=== PATIENT | female | born 1935 | race Caucasian/White ===

== ENCOUNTER 2018-06-05 21:12 | Emergency (ER) | payer MEDICARE, MEDICAID ==
[~2018-06-05] VITALS: Ht 165.1 cm; Wt 79.4 kg
[~2018-06-05 21:12] MED LIST: AMLO5TAB2 PO; AMOX-427 PO; DONE10TA11 PO; ESCI10TA PO; MEMA28CA PO; OLME40TA12 PO; SIMV20TA2 PO
[2018-06-05] MEDS ORDERED: ACETAMINOPHEN 650 MG/20.3 ML LIQUID UDC PO ONE (22:30)
--- NOTE | 2018-06-05 22:52 | NUR ---
Patient discharged to home in stable conditon. Written and verbal after care instructions given. Patient verbalizes understanding of instructions. Patient able to ambulate unassisted with a steady gait. Patient left with all personal belongings.
[2018-06-05 23:42] VITALS: BP 128/88
== END 2018-06-05 22:52 | disposition home or self-care (01) ==
LOC: ER 21:14
DX: S62.92XA Unspecified fracture of left hand, initial encounter for closed fracture (principal); I10 Essential (primary) hypertension; E78.5 Hyperlipidemia, unspecified; Z79.899 Other long term (current) drug therapy; W01.0XXA Fall on same level from slipping, tripping and stumbling without subsequent striking against object, initial encounter; Y93.89 Activity, other specified; Y92.89 Other specified places as the place of occurrence of the external cause; Y99.8 Other external cause status
CPT/HCPCS: 73130; A4663

== ENCOUNTER 2018-09-17 07:52 | Inpatient (IN) | payer MEDICARE, OTHER ==
[~2018-09-17] VITALS: Ht 160 cm; Wt 81.6 kg
[~2018-09-17 07:52] MED LIST changes: -AMLO5TAB2 PO; +AMLO5TAB7 PO
[2018-09-17] MEDS ORDERED: ONDANSETRON 4 MG/2 ML VIAL IV ONE ×2 (08:00→11:28)
[2018-09-17] MEDS ORDERED: MORPHINE SULFATE 2 MG/1 ML DISP.SYRIN IV ONE (08:00)
[2018-09-17] MEDS ORDERED: ONDANSETRON 4 MG/2 ML VIAL ONE (08:03)
[2018-09-17] MEDS ORDERED: SIMV40TA5 PO (08:03)
[2018-09-17] MEDS ORDERED: LOSA100T15 PO (08:03)
[2018-09-17] MEDS ORDERED: MORPHINE SULFATE 4 MG/1 ML DISP.SYRIN ONE ×3 (08:03→09:38)
[2018-09-17] MEDS ORDERED: MEMA1CAP3 PO (08:03)
[2018-09-17 08:23] LABS: BASOPHILS % (AUTO) 0.3 % (0.0-2.0); EOSINOPHILS # (AUTO) 0.2 K/uL (0.0-0.7); EOSINOPHILS % (AUTO) 1.4 % (0.0-7.0); HEMATOCRIT 41.4 % (31.2-41.9); HEMOGLOBIN 13.8 g/dL (10.9-14.3); LYMPHOCYTES # (AUTO) 1.6 K/uL (20.0-40.0); LYMPHOCYTES % (AUTO) 12.3 % (20.5-51.5); MEAN CORPUSCULAR HEMOGLOBIN 29.9 uug (24.7-32.8); MEAN CORPUSCULAR HGB CONC 33 g/dL (32.3-35.6); MEAN CORPUSCULAR VOLUME 89.7 fL (75.5-95.3); MONOCYTES # (AUTO) 0.4 K/uL (2.0-10.0); NEUTROPHILS # (AUTO) 10.6 K/uL (1.8-8.9); PLATELET COUNT (AUTO) 206 K/uL (179-408); RED BLOOD CELL COUNT(AUTO) 4.62 MIL/uL (3.63-4.92); WHITE BLOOD COUNT (AUTO) 12.8 K/uL (3.8-11.8)
[2018-09-17 08:36] LABS: CARBON DIOXIDE 27 mmol/L (21-32); CHLORIDE 106 mmol/L (98-107); GLUCOSE 180 mg/dL (74-106); POTASSIUM 4.5 mmol/L (3.5-5.1); UREA NITROGEN, BLOOD 12 mg/dL (7-18)
[2018-09-17] MEDS ORDERED: MORPHINE SULFATE 4 MG/1 ML DISP.SYRIN IV ONE ×2 (08:45→09:45)
[2018-09-17] MEDS ORDERED: IV NORMAL SALINE 500 ML IV ONE (09:45)
[2018-09-17 10:11] LABS: *BILIRUBIN,URIN NEGATIVE (NEGATIVE); *BLOOD, URINE NEGATIVE (NEGATIVE); *CLARITY,URINE CLEAR (CLEAR); *COLOR,URINE YELLOW (YELLOW); *KETONES,URINE NEGATIVE (NEGATIVE); *PROTEIN,URINE NEGATIVE (NEGATIVE); *UROBILINOGEN,URINE 0.2 E.U./dl (NORMAL); LEUKOCYTE ESTERASE ,URINE NEGATIVE (NEGATIVE); NITRITE, URINE NEGATIVE (NEGATIVE); UGLUCOSE NEGATIVE (NEGATIVE)
[2018-09-17 10:16] LABS: BACTERIA,URINE NONE SEEN /HPF (NONE SEEN); RBC,URINE NONE SEEN /HPF (0-3); SQUAMOUS EPITHELIAL CELL,UR NONE SEEN /HPF (NONE SEEN); WBC,URINE NONE SEEN /HPF (0-3)
[2018-09-17 10:30] VITALS: BP 134/60
[2018-09-17] MEDS ORDERED: POLYMYXIN B SULFATE 500,000 UNITS, BACITRACIN 50,000 UNITS, NORMAL SALINE 20 ML MC ONE ×3 (10:45)
[2018-09-17] MEDS ORDERED: Z GUARD REMEDY PASTE 57 GM TUBE TOP PRN (11:15)
[2018-09-17] MEDS ORDERED: MORPHINE SULFATE 2 MG/1 ML DISP.SYRIN IV PRN (11:15)
[2018-09-17] MEDS ORDERED: MAGNESIUM HYDROXIDE 30 ML LIQUID UDC PO PRN (11:15)
[2018-09-17] MEDS ORDERED: DEXAMETHASONE SOD PHOSPHATE 4 MG INJ IV ONE (11:28)
[2018-09-17] MEDS ORDERED: EPHEDRINE SULFATE 50 MG/ML AMPUL MC ONE (11:28)
[2018-09-17] MEDS ORDERED: CEFAZOLIN 1 G VIAL MC ONE (11:28)
[2018-09-17] MEDS ORDERED: IV NORMAL SALINE 1000 ML BAG IV ONE (11:28)
[2018-09-17] MEDS ORDERED: SEVOFLURANE 250 ML BOTTLE IH ONE (11:28)
[2018-09-17] MEDS ORDERED: PROPOFOL 200 MG/20 ML BOTTLE IV ONE (11:28)
[2018-09-17] MEDS ORDERED: LIDOCAINE-MPF 2% 5 ML VIAL MC ONE (11:28)
[2018-09-17] MEDS ORDERED: MORPHINE SULFATE 4 MG/1 ML DISP.SYRIN IV PRN (11:30)
[2018-09-17] MEDS ORDERED: BUPIVACAINE/EPI PF 0.5% 10 ML VIAL ONE (13:29)
[2018-09-17] MEDS ORDERED: HYDROMORPHONE 2 MG/1 ML DISP.SYRIN ONE (16:43)
[2018-09-17] MEDS ORDERED: FENTANYL CITRATE 100 MCG/2 ML AMPUL ONE (17:59)
[2018-09-17] MEDS ORDERED: KETOROLAC TROMETHAMINE 30 MG INJ IM PRN (18:00)
[2018-09-17 18:53] VITALS: BP 102/55
[2018-09-17] MEDS: IV NS 1000 ML 1,000 ML IV PRN (19:01)
[2018-09-17 19:16] VITALS: BP 109/56
[2018-09-17] MEDS: CEFAZOLIN 1 G in PREMIXED 1 EACH IV SCH (23:01)
[2018-09-17 23:20] VITALS: BP 111/61
[2018-09-18] VITALS (14 sets, daily range): BP systolic 66–115; BP diastolic 36–57
[2018-09-18] MEDS: IV NS 1000 ML 1,000 ML IV PRN ×2 (03:08→16:02)
[2018-09-18 06:25] LABS: HEMATOCRIT 31.2 % (31.2-41.9); HEMOGLOBIN 10.4 g/dL (10.9-14.3); LYMPHOCYTES # (AUTO) 0.9 K/uL (20.0-40.0); LYMPHOCYTES % (AUTO) 7.8 % (20.5-51.5); MEAN CORPUSCULAR HEMOGLOBIN 30.4 uug (24.7-32.8); MEAN CORPUSCULAR HGB CONC 33 g/dL (32.3-35.6); MEAN CORPUSCULAR VOLUME 91.3 fL (75.5-95.3); MONOCYTES # (AUTO) 0.7 K/uL (2.0-10.0); MONOCYTES % (AUTO) 5.6 % (0.0-11.0); NEUTROPHILS # (AUTO) 10.1 K/uL (1.8-8.9); NEUTROPHILS % (AUTO) 86.6 % (38.5-71.5); PLATELET COUNT (AUTO) 223 K/uL (179-408); RED BLOOD CELL COUNT(AUTO) 3.41 MIL/uL (3.63-4.92); WHITE BLOOD COUNT (AUTO) 11.7 K/uL (3.8-11.8)
[2018-09-18 06:32] LABS: CARBON DIOXIDE 23 mmol/L (21-32); CHLORIDE 106 mmol/L (98-107); CHOLESTEROL 125 mg/dL (<200); CREATININE 1.3 mg/dL (0.6-1.3); GLUCOSE 169 mg/dL (74-106); HDL CHOLESTEROL 40 mg/dL (40-60); MAGNESIUM 1.8 mg/dL (1.8-2.4); PHOSPHOROUS 3.8 mg/dL (2.5-4.9); POTASSIUM 3.9 mmol/L (3.5-5.1); TRIGLYCERIDES 108 MG/DL (30-150); UREA NITROGEN, BLOOD 23 mg/dL (7-18)
[2018-09-18] MEDS: CEFAZOLIN 1 G in PREMIXED 1 EACH IV SCH (06:36)
[2018-09-18] MEDS: ONDANSETRON 4 MG/2 ML VIAL IV PRN (08:05)
[2018-09-18] MEDS: ASPIRIN 325 MG TABLET PO SCH ×2 (08:22→17:59)
[2018-09-18] MEDS ORDERED: PANTOPRAZOLE SODIUM 40 MG VIAL IV SCH (09:00)
[2018-09-18] MEDS: CALCIUM CARBONATE 500 MG TABLET PO SCH (11:59)
[2018-09-18] MEDS: KETOROLAC TROMETHAMINE 30 MG INJ IVP PRN ×2 (12:09→21:38)
[2018-09-18] MEDS ORDERED: IV NORMAL SALINE 500 ML IV ONE (13:30)
[2018-09-18] MEDS: MEMANTINE HCL 5 MG TABLET PO SCH (21:29)
[2018-09-18] MEDS: DONEPEZIL 10 MG TABLET PO SCH (21:29)
[2018-09-18] MEDS: ACETAMINOPHEN 325 MG TABLET PO PRN (23:13)
[2018-09-19] VITALS (14 sets, daily range): BP systolic 111–158; BP diastolic 44–72
[2018-09-19] MEDS: IV NS 1000 ML 1,000 ML IV PRN (00:44)
[2018-09-19] MEDS: HYDROCODONE/APAP 5-325MG TABLET PO PRN (06:58)
[2018-09-19] MEDS: ASPIRIN 325 MG TABLET PO SCH ×2 (08:23→17:49)
[2018-09-19] MEDS: CALCIUM CARBONATE 500 MG TABLET PO SCH (08:23)
[2018-09-19] MEDS: MEMANTINE HCL 5 MG TABLET PO SCH ×2 (08:23→20:17)
[2018-09-19] MEDS ORDERED: Medication Not On Formulary EA (Memantine HCl/Donepezil HCl (Namzaric 28 mg-10 mg Capsul PO SCH (09:00)
[2018-09-19] MEDS ORDERED: SIMVASTATIN 40 MG TABLET PO SCH (09:00)
[2018-09-19] MEDS ORDERED: Medication Not On Formulary EA (Losartan Potassium 100 MG) PO SCH (09:00)
[2018-09-19 09:17] LABS: BASOPHILS % (AUTO) 0.1 % (0.0-2.0); HEMATOCRIT 21.8 % (31.2-41.9); LYMPHOCYTES % (AUTO) 7.5 % (20.5-51.5); MEAN CORPUSCULAR HEMOGLOBIN 30.8 uug (24.7-32.8); MEAN CORPUSCULAR HGB CONC 34 g/dL (32.3-35.6); MEAN CORPUSCULAR VOLUME 89.7 fL (75.5-95.3); MONOCYTES # (AUTO) 0.5 K/uL (2.0-10.0); MONOCYTES % (AUTO) 3.6 % (0.0-11.0); NEUTROPHILS # (AUTO) 11.9 K/uL (1.8-8.9); NEUTROPHILS % (AUTO) 88.8 % (38.5-71.5); PLATELET COUNT (AUTO) 154 K/uL (179-408); WHITE BLOOD COUNT (AUTO) 13.4 K/uL (3.8-11.8)
[2018-09-19 09:18] LABS: RED BLOOD CELL COUNT(AUTO) 2.43 MIL/uL (3.63-4.92)
[2018-09-19 09:20] LABS: HEMOGLOBIN 7.5 g/dL (10.9-14.3)
[2018-09-19 09:31] LABS: CARBON DIOXIDE 24 mmol/L (21-32); CHLORIDE 108 mmol/L (98-107); GLUCOSE 155 mg/dL (74-106); MAGNESIUM 1.9 mg/dL (1.8-2.4); PHOSPHOROUS 2.1 mg/dL (2.5-4.9); POTASSIUM 4.2 mmol/L (3.5-5.1); UREA NITROGEN, BLOOD 18 mg/dL (7-18)
[2018-09-19] MEDS: LOSARTAN POTASSIUM 50 MG TABLET PO SCH ×2 (09:40→16:25)
[2018-09-19] MEDS ORDERED: NEUTRA PHOS PACKET PO ONE (13:00)
[2018-09-19] MEDS: NEUTRA PHOS PACKET PO SCH ×3 (13:49→20:17)
[2018-09-19] MEDS: ACETAMINOPHEN 325 MG TABLET PO PRN (17:50)
[2018-09-19] MEDS: DONEPEZIL 10 MG TABLET PO SCH (20:17)
[2018-09-19] MEDS: SIMVASTATIN 40 MG TABLET PO SCH (20:17)
[2018-09-20 04:00] VITALS: BP 130/65
[2018-09-20] MEDS: PANTOPRAZOLE SODIUM 40 MG TABLET.DR PO SCH (06:22)
[2018-09-20] MEDS: IV NS 1000 ML 1,000 ML IV PRN ×2 (06:30→18:19)
[2018-09-20] MEDS: MEMANTINE HCL 5 MG TABLET PO SCH ×2 (08:13→21:22)
[2018-09-20] MEDS: ASPIRIN 325 MG TABLET PO SCH ×2 (08:13→18:18)
[2018-09-20] MEDS: CALCIUM CARBONATE 500 MG TABLET PO SCH (08:13)
[2018-09-20] MEDS: LOSARTAN POTASSIUM 50 MG TABLET PO SCH (08:19)
[2018-09-20] MEDS: HYDROCODONE/APAP 5-325MG TABLET PO PRN (08:28)
[2018-09-20] MEDS: ONDANSETRON 4 MG/2 ML VIAL IV PRN (08:28)
[2018-09-20 08:33] VITALS: BP 105/60
[2018-09-20] MEDS: KETOROLAC TROMETHAMINE 30 MG INJ IVP PRN (10:55)
[2018-09-20 11:20] VITALS: BP 106/52
[2018-09-20 16:00] VITALS: BP 108/56
[2018-09-20 20:00] VITALS: BP 134/63
[2018-09-20 20:03] LABS: BASOPHILS % (AUTO) 0.3 % (0.0-2.0); CARBON DIOXIDE 25 mmol/L (21-32); CHLORIDE 108 mmol/L (98-107); EOSINOPHILS # (AUTO) 0.5 K/uL (0.0-0.7); EOSINOPHILS % (AUTO) 3.8 % (0.0-7.0); GLUCOSE 121 mg/dL (74-106); HEMATOCRIT 28.3 % (31.2-41.9); HEMOGLOBIN 9.8 g/dL (10.9-14.3); LYMPHOCYTES # (AUTO) 1.8 K/uL (20.0-40.0); LYMPHOCYTES % (AUTO) 14.2 % (20.5-51.5); MEAN CORPUSCULAR HEMOGLOBIN 30.2 uug (24.7-32.8); MEAN CORPUSCULAR HGB CONC 35 g/dL (32.3-35.6); MEAN CORPUSCULAR VOLUME 87.5 fL (75.5-95.3); MONOCYTES # (AUTO) 0.7 K/uL (2.0-10.0); MONOCYTES % (AUTO) 5.6 % (0.0-11.0); NEUTROPHILS # (AUTO) 9.4 K/uL (1.8-8.9); NEUTROPHILS % (AUTO) 76.1 % (38.5-71.5); PLATELET COUNT (AUTO) 171 K/uL (179-408); RED BLOOD CELL COUNT(AUTO) 3.23 MIL/uL (3.63-4.92); UREA NITROGEN, BLOOD 14 mg/dL (7-18); WHITE BLOOD COUNT (AUTO) 12.4 K/uL (3.8-11.8)
[2018-09-20] MEDS: SIMVASTATIN 40 MG TABLET PO SCH (21:22)
[2018-09-20] MEDS: DONEPEZIL 10 MG TABLET PO SCH (21:22)
[2018-09-21 04:00] VITALS: BP 146/73
[2018-09-21] MEDS: IV NS 1000 ML 1,000 ML IV PRN (04:51)
[2018-09-21] MEDS: PANTOPRAZOLE SODIUM 40 MG TABLET.DR PO SCH (06:37)
[2018-09-21] MEDS: ASPIRIN 325 MG TABLET PO SCH (08:52)
[2018-09-21] MEDS: MEMANTINE HCL 5 MG TABLET PO SCH (08:53)
[2018-09-21] MEDS: CALCIUM CARBONATE 500 MG TABLET PO SCH (08:53)
[2018-09-21] MEDS: LOSARTAN POTASSIUM 50 MG TABLET PO SCH (08:53)
[2018-09-21 08:55] VITALS: BP 156/73
[2018-09-21] MEDS ORDERED: ONDA4VIA23 IV (10:05)
[2018-09-21] MEDS ORDERED: ASPI-612 PO (10:05)
[2018-09-21] MEDS ORDERED: PANT40TA2 PO (10:05)
[2018-09-21] MEDS ORDERED: DONE10TA11 PO (10:05)
[2018-09-21] MEDS ORDERED: CALC500T55 PO (10:05)
[2018-09-21] MEDS: HYDROCODONE/APAP 5-325MG TABLET PO PRN (10:17)
[2018-09-21] MEDS ORDERED: BISACODYL 10 MG SUPP.RECT RC ONE (10:30)
[2018-09-21 11:30] VITALS: BP 137/69
[2018-09-21] MEDS ORDERED: MORP2SYR IV (14:06)
[2018-09-21] MEDS ORDERED: HYDR-3326 PO (14:06)
[2018-09-21] MEDS ORDERED: KETO30VI4 IVP (14:06)
[2018-09-21] MEDS ORDERED: MAGN400O6 PO (14:06)
== END 2018-09-21 12:40 | DRG 481 ==
LOC: ER 07:52 → TELE 10:20 → ER 10:23 → MED 09-18 15:44
PROVIDERS: ADMIT Hospitalist; ATTEND Hospitalist
PROC: 0QS636Z Reposition Right Upper Femur with Intramedullary Internal Fixation Device, Percutaneous Approach (ICD-10-PCS; principal; 2018-09-17 15:14)
PROC: 30233N1 Transfusion of Nonautologous Red Blood Cells into Peripheral Vein, Percutaneous Approach (ICD-10-PCS; 2018-09-19)
DX: S72.141A Displaced intertrochanteric fracture of right femur, initial encounter for closed fracture (principal); I50.32 Chronic diastolic (congestive) heart failure; W01.0XXA Fall on same level from slipping, tripping and stumbling without subsequent striking against object, initial encounter; Y92.019 Unspecified place in single-family (private) house as the place of occurrence of the external cause; Z68.31 Body mass index [BMI] 31.0-31.9, adult; F03.90 Unspecified dementia, unspecified severity, without behavioral disturbance, psychotic disturbance, mood disturbance, and anxiety; Z91.81 History of falling; I95.1 Orthostatic hypotension; E78.5 Hyperlipidemia, unspecified; Z79.899 Other long term (current) drug therapy; M16.51 Unilateral post-traumatic osteoarthritis, right hip; R73.9 Hyperglycemia, unspecified; I11.0 Hypertensive heart disease with heart failure; D64.9 Anemia, unspecified; E83.51 Hypocalcemia; I49.1 Atrial premature depolarization; I67.2 Cerebral atherosclerosis; D72.829 Elevated white blood cell count, unspecified; E83.39 Other disorders of phosphorus metabolism; E66.01 Morbid (severe) obesity due to excess calories
CPT/HCPCS: 36415; 70030-TC; 70450; 71045; 72170; 73502; 73503; 73551; 83735; 84100; 85025; 85730; 86850; 86900; 86901; 86920; 93005; 97110; 97116; 97530; A4649; A4663; C1713; C9113; G0378; J0690; J1100; J1170; J1885; J2270; J2405; J3010; J3490; J7030; J7040; J7050; P9016-BL; P9021

== ENCOUNTER 2019-03-07 15:20 | Inpatient (IN) | payer MEDICARE, OTHER ==
[~2019-03-07] VITALS: Ht 160 cm; Wt 81.6 kg
[~2019-03-07 15:20] MED LIST changes: -AMLO5TAB7 PO; -AMOX-427 PO; +ASPI-612 PO; +CALC500T55 PO; -ESCI10TA PO; +HYDR-3326 PO; +KETO30VI4 IVP; +LOSA100T31 PO; +MAGN400O6 PO; +MEMA1CAP3 PO; -MEMA28CA PO; -OLME40TA12 PO; +ONDA4VIA23 IV; +PANT40TA2 PO; -SIMV20TA2 PO; +SIMV40TA5 PO
[2019-03-07] MEDS ORDERED: IV NORMAL SALINE 1000 ML BAG IV ONE (15:45)
--- NOTE | 2019-03-07 15:57 | NUR ---
RETAIL BANKER AT BEDSIDE.
[2019-03-07] MEDS ORDERED: ASPI81TA31 PO (16:01)
[2019-03-07 16:03] LABS: *BILIRUBIN,URIN NEGATIVE (NEGATIVE); *CLARITY,URINE CLEAR (CLEAR); *COLOR,URINE YELLOW (YELLOW); *KETONES,URINE NEGATIVE (NEGATIVE); *UROBILINOGEN,URINE 0.2 E.U./dl (NORMAL); LEUKOCYTE ESTERASE ,URINE NEGATIVE (NEGATIVE); NITRITE, URINE NEGATIVE (NEGATIVE); UGLUCOSE NEGATIVE (NEGATIVE)
[2019-03-07 16:10] LABS: *BLOOD, URINE TRACE (NEGATIVE)
[2019-03-07 16:11] LABS: CARBON DIOXIDE 29 mmol/L (21-32); CHLORIDE 98 mmol/L (98-107); CREATININE 0.9 mg/dL (0.6-1.3); GLUCOSE 109 mg/dL (74-106); POTASSIUM 3.6 mmol/L (3.5-5.1); UREA NITROGEN, BLOOD 17 mg/dL (7-18)
[2019-03-07 16:12] LABS: BASOPHILS % (AUTO) 0.4 % (0.0-2.0); EOSINOPHILS # (AUTO) 0.3 K/uL (0.0-0.7); HEMATOCRIT 42.1 % (31.2-41.9); HEMOGLOBIN 13.8 g/dL (10.9-14.3); LYMPHOCYTES # (AUTO) 1.8 K/uL (20.0-40.0); LYMPHOCYTES % (AUTO) 19.9 % (20.5-51.5); MEAN CORPUSCULAR HEMOGLOBIN 28.5 uug (24.7-32.8); MEAN CORPUSCULAR HGB CONC 33 g/dL (32.3-35.6); MEAN CORPUSCULAR VOLUME 86.7 fL (75.5-95.3); MONOCYTES # (AUTO) 0.4 K/uL (2.0-10.0); MONOCYTES % (AUTO) 4.6 % (0.0-11.0); NEUTROPHILS # (AUTO) 6.6 K/uL (1.8-8.9); NEUTROPHILS % (AUTO) 72.1 % (38.5-71.5); PLATELET COUNT (AUTO) 238 K/uL (179-408); RED BLOOD CELL COUNT(AUTO) 4.85 MIL/uL (3.63-4.92); WHITE BLOOD COUNT (AUTO) 9.2 K/uL (3.8-11.8)
[2019-03-07 16:16] LABS: BACTERIA,URINE NONE SEEN /HPF (NONE SEEN); RBC,URINE 0-3 /HPF (0-3); SQUAMOUS EPITHELIAL CELL,UR FEW /HPF (NONE SEEN); WBC,URINE 0-3 /HPF (0-3)
--- NOTE | 2019-03-07 16:20 | NUR ---
PT TAKEN TO RADIOLOGY FOR CT SCAN.
[2019-03-07 16:24] LABS: ALANINE AMINOTRANSFERASE 17 U/L (14-59); ALKALINE PHOSPHATASE 86 U/L (50-136); ASPARTATE AMINOTRANSFERASE 13 U/L (15-37); BILIRUBIN,DIRECT 0.1 mg/dL (0.0-0.2); BILIRUBIN,TOTAL 0.4 mg/dL (0.2-1.0); TOTAL PROTEIN, SERUM 7.9 g/dL (6.4-8.2)
--- NOTE | 2019-03-07 16:53 | NUR ---
LAI URIBE AT BEDSIDE FOR PT UPDATE.
--- NOTE | 2019-03-07 17:01 | NUR ---
PAGED EPIC FOR PANEL CALL - AWAITING CALLBACK FROM DR. DOWNING. ATTEMPT 1.
--- NOTE | 2019-03-07 17:30 | NUR ---
LAI URIBE SPEAKING W/ DR. DOWNING RE PT'S CARE.
--- NOTE | 2019-03-07 17:41 | NUR ---
Pt. admitted to TELE 315, under care of Dr. DOWNING. Belongs List completed
--- NOTE | 2019-03-07 17:41 | NUR ---
ADMITTING REPORT GIVEN TO BEVERLEY PASCAL.
[2019-03-07 18:10] VITALS: BP 177/69
--- NOTE | 2019-03-07 18:15 | NUR ---
Patient received from ER, daughter translating to patient that she will need to get into a gown and have library monitor applied and change adult brief and inspect skin. Patient was calm until her top was taken off and started screaming that she was fine and that she doesn't want the monitor placed on her and that she wants to go home (in broken [place]). Daughter helped calm her down until she finally agreed. Vitals recorded and history provided by daughter at bedside. medication taken to pharmacy.
[2019-03-07] MEDS ORDERED: IV NS 1000 ML 1,000 ML IV PRN (19:03)
[2019-03-07] MEDS ORDERED: ACETAMINOPHEN 325 MG TABLET PO PRN (19:15)
[2019-03-07] MEDS ORDERED: MAGNESIUM HYDROXIDE 30 ML LIQUID UDC PO PRN (19:15)
[2019-03-07] MEDS ORDERED: HYDROCODONE/APAP 5-325MG TABLET PO PRN (19:15)
[2019-03-07] MEDS ORDERED: ONDANSETRON 4 MG/2 ML VIAL IV PRN (19:15)
[2019-03-07] MEDS ORDERED: ZOLPIDEM 5 MG TABLET PO PRN (19:15)
[2019-03-07] MEDS ORDERED: Z GUARD REMEDY PASTE 57 GM TUBE TOP PRN (19:15)
--- NOTE | 2019-03-07 20:20 | NUR ---
Received patient awake and alert in bed with family at bedside. Patient is calm and cooperative. IV is patent and intact. BP slightly elevated but will monitor throughout shift. Safety and fall prevention measures in place. Call light and personal belongings are within reach. Will continue to monitor.
--- NOTE | 2019-03-07 20:35 | NUR ---
Patient's IV was dislodged, removed IV. Patient did not want to put another IV, asked to do it later, wants to rest. Will try in a couple hours.
[2019-03-07 21:07] VITALS: BP 168/69
[2019-03-08 01:12] VITALS: BP 143/92
[2019-03-08 04:57] VITALS: BP 152/64
--- NOTE | 2019-03-08 05:31 | NUR ---
Patient is refusing IV NS fluids. Explained risks/benefits three times, patient still refused. IV catheter removed intact and IV infusion stopped.
--- NOTE | 2019-03-08 05:35 | NUR ---
Patient slept comfortably throughout night. Periods of brief confusion when wakes up, unsure of what tele-monitor is for but when provided explanation, patient acknowledges understanding. Tele is normal sinus rhythm. VS WNL and patient is stable. Patient is cooperative and amiable. Patient is expressing desire to go home today. All safety and fall precaution measures are in place. All nursing needs met promptly.
[2019-03-08 06:36] LABS: BASOPHILS % (AUTO) 0.3 % (0.0-2.0); EOSINOPHILS # (AUTO) 0.4 K/uL (0.0-0.7); EOSINOPHILS % (AUTO) 4.6 % (0.0-7.0); HEMATOCRIT 36.8 % (31.2-41.9); HEMOGLOBIN 12.4 g/dL (10.9-14.3); LYMPHOCYTES % (AUTO) 22.2 % (20.5-51.5); MEAN CORPUSCULAR HGB CONC 34 g/dL (32.3-35.6); MEAN CORPUSCULAR VOLUME 86.3 fL (75.5-95.3); MONOCYTES # (AUTO) 0.5 K/uL (2.0-10.0); MONOCYTES % (AUTO) 5.8 % (0.0-11.0); NEUTROPHILS # (AUTO) 6.1 K/uL (1.8-8.9); NEUTROPHILS % (AUTO) 67.1 % (38.5-71.5); PLATELET COUNT (AUTO) 201 K/uL (179-408); RED BLOOD CELL COUNT(AUTO) 4.26 MIL/uL (3.63-4.92)
[2019-03-08 06:50] LABS: ALANINE AMINOTRANSFERASE 10 U/L (14-59); ALKALINE PHOSPHATASE 74 U/L (50-136); ASPARTATE AMINOTRANSFERASE 12 U/L (15-37); BILIRUBIN,TOTAL 0.5 mg/dL (0.2-1.0); CARBON DIOXIDE 28 mmol/L (21-32); CHLORIDE 107 mmol/L (98-107); CHOLESTEROL 170 mg/dL (<200); CREATININE 0.9 mg/dL (0.6-1.3); GLUCOSE 89 mg/dL (74-106); HDL CHOLESTEROL 48 mg/dL (40-60); MAGNESIUM 1.9 mg/dL (1.8-2.4); PHOSPHOROUS 3.7 mg/dL (2.5-4.9); TOTAL PROTEIN, SERUM 6.7 g/dL (6.4-8.2); TRIGLYCERIDES 92 MG/DL (30-150); UREA NITROGEN, BLOOD 13 mg/dL (7-18)
--- NOTE | 2019-03-08 07:10 | NUR ---
Patient laying in bed comfortably, Tele is normal sinus rhythm. VS WNL and patient is stable. No sob noted , no c/o pain noted and no dizziness note at this time. Patient is cooperative and able to make needs known. patient refuse to be reinsert for IV and refusing IV fluids. All safety and fall precaution measures are in place. All nursing needs met promptly.
[2019-03-08 07:13] LABS: THYROID STIMULATING HORMONE 1.451 mIU/mL (0.358-3.740)
[2019-03-08 09:30] VITALS: BP_SYST 128; BP_SYST 131; BP_SYST 145; BP_DIAS 62; BP_DIAS 72
[2019-03-08 11:16] VITALS: BP 132/64
[2019-03-08 15:19] VITALS: BP 147/80
--- NOTE | 2019-03-08 17:15 | NUR ---
Patient sitting at the edge of the bed talking with family, . No sob noted , no c/o pain noted and no dizziness note at this time. Patient is cooperative and able to make needs known. Seen by structural iron erector and neurologist. All safety and fall precaution measures are in place. All nursing needs met promptly received discharge order from Dr. Topete to home. discharge instruction given to patient with to continue home medications and follow up with PCP within 1 week and patient verbalize understanding. ID band removed, belongings and medications returned to patient and signed, questions and concerns addressed. patient discharge with family.
== END 2019-03-08 17:15 | disposition home or self-care (01) | DRG 74 ==
LOC: ER 15:23 → TELE3 17:41
PROVIDERS: ADMIT Internal Medicine; ATTEND Internal Medicine
DX: G90.8 Other disorders of autonomic nervous system (principal); E87.1 Hypo-osmolality and hyponatremia; E78.5 Hyperlipidemia, unspecified; F03.90 Unspecified dementia, unspecified severity, without behavioral disturbance, psychotic disturbance, mood disturbance, and anxiety; I10 Essential (primary) hypertension; Z79.82 Long term (current) use of aspirin; Z79.899 Other long term (current) drug therapy
CPT/HCPCS: 36415; 70030-TC; 70450; 71045; 83605; 83735; 84100; 84443; 85025; 85730; 87040; 87086; 93005; 93307; A4663; G0378; J7030

== ENCOUNTER 2021-11-05 09:33 | Inpatient (IN) | payer MEDICARE, OTHER ==
[~2021-11-05] VITALS: Ht 165.1 cm; Wt 75.7 kg
[~2021-11-05 09:33] MED LIST changes: -ASPI-612 PO; +ASPI81TA31 PO; +CALC500T53 PO; -CALC500T55 PO; -KETO30VI4 IVP; -MAGN400O6 PO; -ONDA4VIA23 IV; +SIMV-49 PO; -SIMV40TA5 PO
[2021-11-05] MEDS ORDERED: IV NORMAL SALINE 1000 ML BAG IV ONE ×2 (09:45→12:00)
[2021-11-05 10:49] LABS: HEMATOCRIT 39.5 % (31.2-41.9); MEAN CORPUSCULAR HEMOGLOBIN 29.1 uug (24.7-32.8); MEAN CORPUSCULAR VOLUME 88.9 fL (75.5-95.3); PLATELET COUNT (AUTO) 223 K/uL (179-408)
[2021-11-05 10:59] LABS: CREATININE 1.1 mg/dL (0.6-1.3); POTASSIUM 4.7 mmol/L (3.5-5.1)
[2021-11-05 11:05] LABS: BILIRUBIN,DIRECT 0.1 mg/dL (0.0-0.2); BILIRUBIN,TOTAL 0.5 mg/dL (0.2-1.0); TOTAL PROTEIN, SERUM 7.1 g/dL (6.4-8.2)
--- NOTE | 2021-11-05 11:10 | NUR ---
Pt to be admitted to [facility], [facility] paged, room 304 assigned. Plan of care discussed with pt and daughter. Pt signed property management form. No s/s of distress noted, BP 132/61 at this time.
[2021-11-05] MEDS ORDERED: CEFTRIAXONE 1 G in IV DEXTROSE 5% 50 ML IV ONE (11:15)
[2021-11-05] MEDS ORDERED: CEFTRIAXONE 1 G VIAL ONE (11:25)
[2021-11-05 11:32] LABS: THYROID STIMULATING HORMONE 2.951 mIU/mL (0.358-3.740)
--- NOTE | 2021-11-05 11:36 | NUR ---
SBAR report given to [place] RN via telephone. Anil Rdz at bedside speaking with the pt and her daughter.
--- NOTE | 2021-11-05 11:50 | NUR ---
Pt ambulated to restroom, clean catch urine specimen obtained and sent to lab.
[2021-11-05 11:59] LABS: *BILIRUBIN,URIN NEGATIVE (NEGATIVE); *BLOOD, URINE NEGATIVE (NEGATIVE); *CLARITY,URINE CLEAR (CLEAR); *COLOR,URINE YELLOW (YELLOW); *KETONES,URINE NEGATIVE (NEGATIVE); *UROBILINOGEN,URINE 0.2 E.U./dl (NORMAL); LEUKOCYTE ESTERASE ,URINE TRACE (NEGATIVE); NITRITE, URINE NEGATIVE (NEGATIVE); UGLUCOSE NEGATIVE (NEGATIVE)
[2021-11-05] MEDS ORDERED: IV NS 1000 ML 1,000 ML IV PRN (12:00)
[2021-11-05] MEDS ORDERED: Z GUARD REMEDY PASTE 57 GM TUBE TOP PRN (12:00)
[2021-11-05] MEDS ORDERED: ONDANSETRON 4 MG/2 ML VIAL IV PRN (12:00)
[2021-11-05] MEDS ORDERED: MAGNESIUM HYDROXIDE 30 ML LIQUID UDC PO PRN (12:00)
[2021-11-05] MEDS ORDERED: ACETAMINOPHEN 325 MG TABLET PO PRN (12:00)
--- NOTE | 2021-11-05 12:00 | NUR ---
Pt trans to tele floor room 304, NAD noted.
[2021-11-05 12:17] LABS: RBC,URINE NONE SEEN /HPF (0-3); SQUAMOUS EPITHELIAL CELL,UR FEW /HPF (NONE SEEN); WBC,URINE 0-3 /HPF (0-3)
[2021-11-05 12:18] LABS: MUCUS,URINE FEW /LPF (0-FEW)
[2021-11-05 12:21] LABS: BACTERIA,URINE FEW /HPF (NONE SEEN)
[2021-11-05 12:36] VITALS: BP 112/65
[2021-11-05] MEDS: ENOXAPARIN SODIUM 40 MG/0.4 ML DISP.SYRIN SQ SCH (13:00)
--- NOTE | 2021-11-05 13:19 | NUR ---
Clarified NS BOLUS ordered from er and given by er nurse per pharmacist.
--- NOTE | 2021-11-05 14:00 | NUR ---
Notified Dr metz pt and family refusing to have the CTA chest with dissection.
--- NOTE | 2021-11-05 16:00 | NUR ---
Pt refused troponin blood to be drawn.
[2021-11-05 16:03] VITALS: BP 133/57
[2021-11-05] MEDS ORDERED: IV NORMAL SALINE 250 ML IV ONE (16:49)
[2021-11-05] MEDS ORDERED: IOHEXOL 350 100 ML INFUS..BTL ONE (16:49)
[2021-11-05] MEDS ORDERED: SWABABLE VALVE TRANSFER SET EA MC ONE (16:49)
--- NOTE | 2021-11-05 16:57 | NUR ---
Pt and family now ok to have the cta done. IV 18 gauge on left ac intact flushed without any resistance. Pt is in no acute distress. PT signed Radiology consent.
[2021-11-05] MEDS: MEMANTINE HCL 10 MG TABLET PO SCH (17:15)
--- NOTE | 2021-11-05 17:45 | NUR ---
PT done with CTA chest with dissection. Family at bedside stating that their MOM is "not feeling good." assessed pt no drift noted. Smile equal. strength equal. no double vision noted. no dizziness noted. pt very anxious. Attempted visual relaxation unsuccessful. VS 152/63 hr 83- temp 98.0 r/a 98% resp 18. Explained to pt and family member that pt refused blood draw for troponin. Explained purpose of blood draw but pt and family continue to refused any blood draws. Addendum: 11/05/21 at 1830 by HOMER JUICE LOWERY Pt family members are overbearing and affecting pt's care. Instructed family to step aside when nursing is taking care of the patient. Asked family to designate one person to be represent their family.
[2021-11-05 20:08] VITALS: BP 144/61
[2021-11-06 00:23] VITALS: BP 127/63
--- NOTE | 2021-11-06 01:47 | NUR ---
pt pulled out her IV; pt refused reinsertion; will try again later
[2021-11-06 04:27] VITALS: BP 121/58
[2021-11-06] MEDS: PANTOPRAZOLE SODIUM 40 MG TABLET.DR PO SCH (06:24)
--- NOTE | 2021-11-06 07:10 | NUR ---
pt refused all blood draws; refused IV reinsertion; SBP in the 120s; safety maintained; continue plan of care
[2021-11-06] MEDS: ASPIRIN EC 81 MG TABLET.DR PO SCH (07:51)
[2021-11-06] MEDS: DONEPEZIL 10 MG TABLET PO SCH (07:52)
[2021-11-06] MEDS: MEMANTINE HCL 10 MG TABLET PO SCH ×2 (07:52→17:21)
[2021-11-06] MEDS: ENOXAPARIN SODIUM 40 MG/0.4 ML DISP.SYRIN SQ SCH (07:52)
[2021-11-06] MEDS ORDERED: MEMANTINE PO SCH (09:00)
[2021-11-06] MEDS ORDERED: DONEPEZIL PO SCH (09:00)
[2021-11-06] MEDS ORDERED: Medication Not On Formulary EA (Memantine HCl/Donepezil HCl (Namzaric 28 mg-10 mg Capsul PO SCH (09:00)
[2021-11-06] MEDS ORDERED: LOSARTAN POTASSIUM 50 MG TABLET PO SCH (09:00)
[2021-11-06] MEDS ORDERED: Medication Not On Formulary EA (Losartan Potassium 100 MG) PO SCH (09:00)
[2021-11-06] MEDS ORDERED: [UNRECOGNIZED DRUG - OTHER] PO SCH (09:00)
[2021-11-06] MEDS: CEFTRIAXONE 1 G in IV DEXTROSE 5% 50 ML IV SCH (11:00)
[2021-11-06] MEDS ORDERED: LOSA50TA3 PO (11:40)
[2021-11-06 11:53] VITALS: BP 137/76
--- NOTE | 2021-11-06 11:56 | NUR ---
PT REFUSING IV REINSERTION UNABLE TO GIVE ROCHEPHIN
[2021-11-06 16:00] VITALS: BP 161/80
--- NOTE | 2021-11-06 17:00 | NUR ---
Family requesting SNF placement. Case management notified of family request.
--- NOTE | 2021-11-06 18:26 | NUR ---
Charge nurse spoke with pt family BENJAMIN VALDES and KYLAH updated family of pts condition in detail. Family does not want to take pt home. Case management aware of situation and spoke with family.
--- NOTE | 2021-11-06 19:30 | NUR ---
Alert and oriented to person. Found walking around in her room not using assistive devices. She is unsteady on her feet, noted holding on to furniture for stability. In pleasant mood, Farsi speaking, able to understand and follow simple commands. Denies pain, No SOB noted, on RA. Call light within reach. Safety measures initiated.
[2021-11-06 20:05] VITALS: BP 146/78
[2021-11-06] MEDS ORDERED: SIMVASTATIN 40 MG TABLET PO SCH (21:00)
[2021-11-07 04:03] VITALS: BP 142/70
[2021-11-07] MEDS: PANTOPRAZOLE SODIUM 40 MG TABLET.DR PO SCH (06:05)
--- NOTE | 2021-11-07 06:46 | NUR ---
Patient slept well this shift. No significant events. Noted to go to the bathroom without assistance 2 times. Reminded to use cane, noted with limping, unstable gait. Safety measures continued. Call light within reach.
--- NOTE | 2021-11-07 07:50 | NUR ---
received awake, oriented x1, no acute distress. trying to get out of bed without assistance. reoriented prn. ambulates using walker. bed at lowest locked and alarm is on. siderails x2 up. cont to monitor.
[2021-11-07] MEDS: DONEPEZIL 10 MG TABLET PO SCH (08:22)
[2021-11-07] MEDS: MEMANTINE HCL 10 MG TABLET PO SCH (08:22)
[2021-11-07] MEDS: ASPIRIN EC 81 MG TABLET.DR PO SCH (08:22)
--- NOTE | 2021-11-07 08:50 | NUR ---
received call from pt's son stated they will pick her up later this afternoon taking her home instead. telehealth case manager made aware also that son wants to talk to her.
[2021-11-07] MEDS ORDERED: LOSARTAN POTASSIUM 50 MG TABLET PO SCH (09:00)
[2021-11-07] MEDS: ENOXAPARIN SODIUM 40 MG/0.4 ML DISP.SYRIN SQ SCH (09:23)
--- NOTE | 2021-11-07 09:30 | NUR ---
received call from dtr ivanna confirmed that she's going home today around 4pm. pt aware and agreeable.
--- NOTE | 2021-11-07 09:30 | NUR ---
noted going to the bathroom refusing assistance saying "i'm ok" using her cane with unsteady gait. assisted in the bathroom and back to bed, prefers sitting at edge of bed. encouraged to use walker instead but shaking her head. bed kept low locked and alarm on. cont to monitor.
--- NOTE | 2021-11-07 11:07 | NUR ---
refused iv reinsertion. will try again later
[2021-11-07 12:00] VITALS: BP 136/66
--- NOTE | 2021-11-07 13:00 | NUR ---
pt refused iv insertion. iv rocephin not given. aware.
[2021-11-07] MEDS: CEFTRIAXONE 1 G in IV DEXTROSE 5% 50 ML IV SCH (13:01)
--- NOTE | 2021-11-07 15:10 | NUR ---
dtr ivanna is here stated pt's pharmacy is [facility]. informed textile clothing and footwear mechanic cedillo and changed on the system. he said he will resend prescription. dtr aware.
[2021-11-07] MEDS ORDERED: LOSA50TA39 PO (15:16)
--- NOTE | 2021-11-07 15:43 | NUR ---
picked up by daughter ivanna. discharge instructions relayed both to dtr ivanna and patient and verbalized understanding. no s/sx of sob or pain. discharged via wc in stable condition.
== END 2021-11-07 16:00 | disposition home or self-care (01) | DRG 74 ==
LOC: ER 09:35 → TELE3 11:52 → MEDSURG3 11-06 10:48
PROVIDERS: ADMIT Hospitalist; ATTEND Hospitalist
DX: G90.8 Other disorders of autonomic nervous system (principal); E44.1 Mild protein-calorie malnutrition; E87.2 Acidosis; I50.32 Chronic diastolic (congestive) heart failure; E86.0 Dehydration; E88.09 Other disorders of plasma-protein metabolism, not elsewhere classified; E78.5 Hyperlipidemia, unspecified; F03.90 Unspecified dementia, unspecified severity, without behavioral disturbance, psychotic disturbance, mood disturbance, and anxiety; I11.0 Hypertensive heart disease with heart failure; Z91.19 Patient's noncompliance with other medical treatment and regimen; Z96.643 Presence of artificial hip joint, bilateral; Z20.822 Contact with and (suspected) exposure to COVID-19; Z90.710 Acquired absence of both cervix and uterus; Z68.27 Body mass index [BMI] 27.0-27.9, adult; Z90.5 Acquired absence of kidney
CPT/HCPCS: 36415; 70030-TC; 70450; 71045; 83605; 84443; 85025; 85730; 87040; 87086; 93307; 93880; A4663; G0378; J0696; J1650; J7030; J7050; J7060; Q9967

== ENCOUNTER 2023-07-04 08:38 | Inpatient (IN) | payer MEDICARE, OTHER ==
[~2023-07-04] VITALS: Ht 154.9 cm; Wt 67.2 kg
[~2023-07-04 08:38] MED LIST changes: -ASPI81TA31 PO; -CALC500T53 PO; -DONE10TA11 PO; -HYDR-3326 PO; -LOSA100T31 PO; +LOSA50TA39 PO; -PANT40TA2 PO
[2023-07-04] MEDS ORDERED: KETOROLAC TROMETHAMINE 15 MG INJ IVP ONE (09:00)
[2023-07-04] MEDS ORDERED: IV NORMAL SALINE 1000 ML BAG IV ONE (09:00)
[2023-07-04] MEDS ORDERED: METOCLOPRAMIDE HCL 10 MG/2 ML VIAL IV ONE (09:00)
[2023-07-04] MEDS ORDERED: METO-295 PO (09:00)
[2023-07-04 09:24] LABS: BASOPHILS % (AUTO) 0.4 % (0.0-2.0); EOSINOPHILS # (AUTO) 0.2 K/uL (0.0-0.7); EOSINOPHILS % (AUTO) 2.2 % (0.0-7.0); HEMATOCRIT 38.3 % (31.2-41.9); HEMOGLOBIN 12.4 g/dL (10.9-14.3); LYMPHOCYTES # (AUTO) 1.6 K/uL (0.8-4.8); LYMPHOCYTES % (AUTO) 14.7 % (20.5-51.5); MEAN CORPUSCULAR HEMOGLOBIN 28.1 uug (24.7-32.8); MEAN CORPUSCULAR HGB CONC 32 g/dL (32.3-35.6); MEAN CORPUSCULAR VOLUME 86.7 fL (75.5-95.3); MONOCYTES # (AUTO) 0.8 K/uL (0.1-1.30); MONOCYTES % (AUTO) 7.1 % (0.0-11.0); NEUTROPHILS # (AUTO) 8.5 K/uL (1.8-8.9); NEUTROPHILS % (AUTO) 75.6 % (38.5-71.5); PLATELET COUNT (AUTO) 322 K/uL (179-408); RED BLOOD CELL COUNT(AUTO) 4.42 MIL/uL (3.63-4.92); RED CELL DISTRIBUTION WIDTH 13.7 % (12.3-17.7); WHITE BLOOD COUNT (AUTO) 11.2 K/uL (3.8-11.8)
[2023-07-04 09:26] LABS: DIFFERENTIAL COMMENT 1
[2023-07-04 09:35] LABS: CALCIUM 9.1 mg/dL (8.5-10.1); CARBON DIOXIDE 24 mmol/L (21-32); CHLORIDE 104 mmol/L (98-107); GLUCOSE 151 mg/dL (74-106); POTASSIUM 3.5 mmol/L (3.5-5.1); SODIUM SERUM 138 mmol/L (136-145); UREA NITROGEN, BLOOD 11 mg/dL (7-18)
[2023-07-04 09:41] LABS: AMMONIA < 10 umol/L (11-32)
[2023-07-04 09:44] LABS: ALANINE AMINOTRANSFERASE 7 U/L (14-59); ALBUMIN 2.9 g/dL (3.4-5.0); ALKALINE PHOSPHATASE 73 U/L (50-136); ASPARTATE AMINOTRANSFERASE 8 U/L (15-37); BILIRUBIN,DIRECT 0.2 mg/dL (0.0-0.2); BILIRUBIN,TOTAL 0.6 mg/dL (0.2-1.0); TOTAL PROTEIN, SERUM 7.2 g/dL (6.4-8.2)
[2023-07-04] MEDS ORDERED: KETOROLAC TROMETHAMINE 15 MG INJ ONE (09:44)
[2023-07-04] MEDS ORDERED: METOCLOPRAMIDE HCL 10 MG/2 ML VIAL ONE (09:44)
[2023-07-04 10:06] LABS: LIPASE 41 U/L (73-393)
[2023-07-04] MEDS ORDERED: ONDANSETRON 4 MG/2 ML VIAL ONE (10:26)
[2023-07-04] MEDS ORDERED: ONDANSETRON 4 MG/2 ML VIAL IV ONE (10:30)
[2023-07-04 11:40] LABS: *BLOOD, URINE NEGATIVE (NEGATIVE); *CLARITY,URINE CLEAR (CLEAR); *COLOR,URINE YELLOW (YELLOW); *KETONES,URINE NEGATIVE (NEGATIVE); *PROTEIN,URINE TRACE (NEGATIVE); LEUKOCYTE ESTERASE ,URINE NEGATIVE (NEGATIVE); NITRITE, URINE NEGATIVE (NEGATIVE); UGLUCOSE NEGATIVE (NEGATIVE)
[2023-07-04 11:49] LABS: *BILIRUBIN,URIN 1+ (NEGATIVE)
[2023-07-04 12:45] LABS: BACTERIA,URINE MODERATE /HPF (NONE SEEN); SQUAMOUS EPITHELIAL CELL,UR MANY /HPF (NONE SEEN); WBC,URINE 0-3 /HPF (0-3)
[2023-07-04] MEDS ORDERED: diphenhydrAMINE 50 MG/1 ML VIAL IV ONE (13:30)
[2023-07-04] MEDS ORDERED: LORAZEPAM 2 MG/1 ML VIAL IV ONE (13:30)
[2023-07-04] MEDS ORDERED: HALOPERIDOL LACTATE 5 MG/1 ML VIAL IV ONE (13:30)
[2023-07-04] MEDS ORDERED: HALOPERIDOL LACTATE 5 MG/1 ML VIAL ONE (13:40)
[2023-07-04] MEDS ORDERED: diphenhydrAMINE 50 MG/1 ML VIAL ONE (13:40)
[2023-07-04] MEDS ORDERED: LORAZEPAM 2 MG/1 ML VIAL ONE (13:41)
[2023-07-04 16:00] VITALS: BP 149/71; TEMP 97.8; O2SAT 97
[2023-07-04] MEDS ORDERED: ZOLPIDEM 5 MG TABLET PO PRN (17:00)
[2023-07-04] MEDS ORDERED: REMEDY ESSENTIAL ZINC PASTE 113 GM TP PRN (17:00)
[2023-07-04] MEDS ORDERED: ACETAMINOPHEN 325 MG TABLET PO PRN (17:00)
[2023-07-04] MEDS ORDERED: MAGNESIUM HYDROXIDE 30 ML LIQUID UDC PO PRN (17:00)
[2023-07-04] MEDS: IV 1/2NS 1000 ML 1,000 ML IV PRN (17:35)
[2023-07-04 20:00] VITALS: BP 147/73; TEMP 98.4; O2SAT 93
[2023-07-05] MEDS: IV 1/2NS 1000 ML 1,000 ML IV PRN ×3 (02:23→23:45)
[2023-07-05 04:00] VITALS: BP 128/70; TEMP 98.5; O2SAT 94
[2023-07-05 07:26] LABS: BASOPHILS % (AUTO) 0.1 % (0.0-2.0); EOSINOPHILS # (AUTO) 0.2 K/uL (0.0-0.7); EOSINOPHILS % (AUTO) 1.4 % (0.0-7.0); HEMATOCRIT 36.8 % (31.2-41.9); HEMOGLOBIN 12.2 g/dL (10.9-14.3); LYMPHOCYTES # (AUTO) 1.3 K/uL (0.8-4.8); MEAN CORPUSCULAR HEMOGLOBIN 28.5 uug (24.7-32.8); MEAN CORPUSCULAR HGB CONC 33 g/dL (32.3-35.6); MEAN CORPUSCULAR VOLUME 85.8 fL (75.5-95.3); MONOCYTES # (AUTO) 0.6 K/uL (0.1-1.30); MONOCYTES % (AUTO) 5.5 % (0.0-11.0); NEUTROPHILS # (AUTO) 9.3 K/uL (1.8-8.9); PLATELET COUNT (AUTO) 291 K/uL (179-408); RED BLOOD CELL COUNT(AUTO) 4.29 MIL/uL (3.63-4.92); RED CELL DISTRIBUTION WIDTH 13.4 % (12.3-17.7); WHITE BLOOD COUNT (AUTO) 11.4 K/uL (3.8-11.8)
[2023-07-05 07:35] LABS: DIFFERENTIAL COMMENT 1
[2023-07-05 07:42] LABS: CALCIUM 8.2 mg/dL (8.5-10.1); CARBON DIOXIDE 23 mmol/L (21-32); CHLORIDE 105 mmol/L (98-107); CREATININE 0.9 mg/dL (0.6-1.3); GLUCOSE 93 mg/dL (74-106); PHOSPHOROUS 3.1 mg/dL (2.5-4.9); POTASSIUM 3.3 mmol/L (3.5-5.1); SODIUM SERUM 139 mmol/L (136-145); UREA NITROGEN, BLOOD 8 mg/dL (7-18)
[2023-07-05] MEDS: PANTOPRAZOLE SODIUM 40 MG VIAL IV SCH (08:46)
[2023-07-05] MEDS: ONDANSETRON 4 MG/2 ML VIAL IV PRN (08:47)
[2023-07-05 09:14] LABS: MAGNESIUM 1.8 mg/dL (1.8-2.4)
[2023-07-05 12:20] VITALS: BP 127/55; TEMP 98.1; O2SAT 94
[2023-07-05] MEDS: POTASSIUM CHLORIDE 50 ML IV SCH ×2 (12:24→13:44)
[2023-07-05 15:30] VITALS: BP 130/69; TEMP 98; O2SAT 96
[2023-07-05 20:20] VITALS: BP 145/70; TEMP 97.7; O2SAT 94
[2023-07-06 04:17] VITALS: BP 175/84; TEMP 98.3; O2SAT 96
[2023-07-06 04:30] VITALS: BP 131/74; O2SAT 95
[2023-07-06 08:00] VITALS: BP 113/54; TEMP 98.8; O2SAT 95
[2023-07-06] MEDS: IV 1/2NS 1000 ML 1,000 ML IV PRN ×2 (08:10→18:07)
[2023-07-06] MEDS: PANTOPRAZOLE SODIUM 40 MG VIAL IV SCH (08:25)
[2023-07-06] MEDS: SIMVASTATIN 40 MG TABLET PO SCH (08:25)
[2023-07-06] MEDS: METOCLOPRAMIDE HCL 10 MG TABLET PO SCH ×2 (08:25→13:00)
[2023-07-06] MEDS ORDERED: Medication Not On Formulary EA (Memantine HCl/Donepezil HCl (Namzaric 28 mg-10 mg Capsul PO SCH (09:00)
[2023-07-06] MEDS: MEMANTINE HCL 10 MG TABLET PO SCH ×2 (09:00→13:55)
[2023-07-06] MEDS ORDERED: LOSA50TA39 PO (09:15)
[2023-07-06] MEDS ORDERED: FENO145T21 PO (09:16)
[2023-07-06] MEDS ORDERED: DIATR MEGLU/DIATRIZOATE SODIUM 30 ML BOTTLE ONE (11:39)
[2023-07-06 11:50] VITALS: BP 108/57; TEMP 98.9; O2SAT 95
[2023-07-06] MEDS: DONEPEZIL 10 MG TABLET PO SCH (13:50)
[2023-07-06 16:00] VITALS: BP 144/69; TEMP 97.7; O2SAT 96
[2023-07-06 20:06] VITALS: BP 149/60; TEMP 98.3; O2SAT 93
[2023-07-07] MEDS: IV 1/2NS 1000 ML 1,000 ML IV PRN (03:16)
[2023-07-07 04:56] VITALS: BP 124/55; TEMP 98.3; O2SAT 96
[2023-07-07 06:24] LABS: BASOPHILS % (AUTO) 0.2 % (0.0-2.0); EOSINOPHILS # (AUTO) 0.4 K/uL (0.0-0.7); EOSINOPHILS % (AUTO) 3.7 % (0.0-7.0); HEMATOCRIT 35.2 % (31.2-41.9); HEMOGLOBIN 11.8 g/dL (10.9-14.3); LYMPHOCYTES # (AUTO) 1.6 K/uL (0.8-4.8); LYMPHOCYTES % (AUTO) 14.7 % (20.5-51.5); MEAN CORPUSCULAR HEMOGLOBIN 28.6 uug (24.7-32.8); MEAN CORPUSCULAR HGB CONC 34 g/dL (32.3-35.6); MEAN CORPUSCULAR VOLUME 85.2 fL (75.5-95.3); MONOCYTES # (AUTO) 0.7 K/uL (0.1-1.30); MONOCYTES % (AUTO) 6.1 % (0.0-11.0); NEUTROPHILS # (AUTO) 8.4 K/uL (1.8-8.9); NEUTROPHILS % (AUTO) 75.3 % (38.5-71.5); PLATELET COUNT (AUTO) 280 K/uL (179-408); RED BLOOD CELL COUNT(AUTO) 4.13 MIL/uL (3.63-4.92); RED CELL DISTRIBUTION WIDTH 13.6 % (12.3-17.7); WHITE BLOOD COUNT (AUTO) 11.1 K/uL (3.8-11.8)
[2023-07-07 06:41] LABS: CALCIUM 8.2 mg/dL (8.5-10.1); CREATININE 0.8 mg/dL (0.6-1.3); MAGNESIUM 1.8 mg/dL (1.8-2.4); PHOSPHOROUS 2.7 mg/dL (2.5-4.9); POTASSIUM 2.9 mmol/L (3.5-5.1)
[2023-07-07 06:55] LABS: DIFFERENTIAL COMMENT 1
[2023-07-07] MEDS: PANTOPRAZOLE SODIUM 40 MG TABLET.DR PO SCH (07:13)
[2023-07-07] MEDS: MEMANTINE HCL 10 MG TABLET PO SCH ×2 (08:43→16:42)
[2023-07-07] MEDS: DONEPEZIL 10 MG TABLET PO SCH (08:43)
[2023-07-07] MEDS: LOSARTAN POTASSIUM 50 MG TABLET PO SCH (08:43)
[2023-07-07] MEDS: FENOFIBRATE NANOCRYSTALLIZED 145 MG TABLET PO SCH (08:44)
[2023-07-07] MEDS: SIMVASTATIN 40 MG TABLET PO SCH (08:44)
[2023-07-07] MEDS: ONDANSETRON 4 MG/2 ML VIAL IV PRN (08:59)
[2023-07-07 11:17] VITALS: BP 147/71; TEMP 97.6; O2SAT 93
[2023-07-07] MEDS: POTASSIUM CHLORIDE 50 ML IV SCH ×6 (11:47→16:00)
[2023-07-07] MEDS: IV NS 1000 ML 1,000 ML IV PRN (12:57)
[2023-07-07 16:25] VITALS: BP 140/87; TEMP 98.3; O2SAT 94
[2023-07-07 17:57] LABS: *CHLORIDE RNDM,URINE 77 mmol/L (100-250); *POTASSIUM RNDM,URINE 11 mmol/L (25-125); *SODIUM RNDM,URINE 63 mmol/L (40-220)
[2023-07-08 00:16] VITALS: BP 150/83; TEMP 98; O2SAT 95
[2023-07-08] MEDS: PANTOPRAZOLE SODIUM 40 MG TABLET.DR PO SCH (06:05)
[2023-07-08 06:17] LABS: BASOPHILS % (AUTO) 0.4 % (0.0-2.0); EOSINOPHILS # (AUTO) 0.3 K/uL (0.0-0.7); EOSINOPHILS % (AUTO) 2.8 % (0.0-7.0); HEMATOCRIT 36.2 % (31.2-41.9); LYMPHOCYTES # (AUTO) 1.9 K/uL (0.8-4.8); LYMPHOCYTES % (AUTO) 17.1 % (20.5-51.5); MEAN CORPUSCULAR HEMOGLOBIN 28.1 uug (24.7-32.8); MEAN CORPUSCULAR HGB CONC 33 g/dL (32.3-35.6); MEAN CORPUSCULAR VOLUME 84.5 fL (75.5-95.3); MONOCYTES # (AUTO) 0.6 K/uL (0.1-1.30); MONOCYTES % (AUTO) 5.2 % (0.0-11.0); NEUTROPHILS # (AUTO) 8.3 K/uL (1.8-8.9); NEUTROPHILS % (AUTO) 74.5 % (38.5-71.5); PLATELET COUNT (AUTO) 297 K/uL (179-408); RED BLOOD CELL COUNT(AUTO) 4.28 MIL/uL (3.63-4.92); RED CELL DISTRIBUTION WIDTH 13.4 % (12.3-17.7); WHITE BLOOD COUNT (AUTO) 11.1 K/uL (3.8-11.8)
[2023-07-08 06:26] LABS: DIFFERENTIAL COMMENT 1
[2023-07-08 06:46] LABS: CALCIUM 8.7 mg/dL (8.5-10.1); CARBON DIOXIDE 26 mmol/L (21-32); CHLORIDE 106 mmol/L (98-107); CREATININE 0.7 mg/dL (0.6-1.3); GLUCOSE 99 mg/dL (74-106); MAGNESIUM 1.9 mg/dL (1.8-2.4); PHOSPHOROUS 2.8 mg/dL (2.5-4.9); POTASSIUM 3.3 mmol/L (3.5-5.1); SODIUM SERUM 142 mmol/L (136-145); UREA NITROGEN, BLOOD 6 mg/dL (7-18)
[2023-07-08 08:00] VITALS: BP 132/74; TEMP 98.8; O2SAT 95
[2023-07-08] MEDS ORDERED: POTASSIUM CHLORIDE 20 MEQ TAB.PRT.SR PO ONE (09:15)
[2023-07-08] MEDS: FENOFIBRATE NANOCRYSTALLIZED 145 MG TABLET PO SCH ×2 (10:06→10:48)
[2023-07-08] MEDS: MEMANTINE HCL 10 MG TABLET PO SCH ×2 (10:07→17:00)
[2023-07-08] MEDS: LOSARTAN POTASSIUM 50 MG TABLET PO SCH (10:07)
[2023-07-08] MEDS: SIMVASTATIN 40 MG TABLET PO SCH (10:08)
[2023-07-08] MEDS: DONEPEZIL 10 MG TABLET PO SCH (10:08)
[2023-07-08] MEDS ORDERED: POTASSIUM CHLORIDE 20 MEQ POWDER PACKET PO ONE (10:15)
[2023-07-08 12:00] VITALS: BP 136/71; TEMP 98.4; O2SAT 95
[2023-07-08] MEDS ORDERED: PROPOFOL 200 MG/20 ML BOTTLE ONE (18:11)
[2023-07-08 20:30] VITALS: BP 152/82; TEMP 98; O2SAT 96
[2023-07-09] MEDS: ONDANSETRON 4 MG/2 ML VIAL IV PRN (02:23)
[2023-07-09] MEDS ORDERED: LORAZEPAM 2 MG/1 ML VIAL IV PRN (02:45)
[2023-07-09] MEDS: IV NS 1000 ML 1,000 ML IV PRN ×2 (02:51→20:35)
[2023-07-09 04:30] VITALS: BP 143/76; TEMP 98.3; O2SAT 95
[2023-07-09] MEDS: PANTOPRAZOLE SODIUM 40 MG TABLET.DR PO SCH (06:31)
[2023-07-09 06:43] LABS: BASOPHILS % (AUTO) 0.4 % (0.0-2.0); EOSINOPHILS # (AUTO) 0.1 K/uL (0.0-0.7); EOSINOPHILS % (AUTO) 1.2 % (0.0-7.0); HEMATOCRIT 39.5 % (31.2-41.9); HEMOGLOBIN 12.8 g/dL (10.9-14.3); LYMPHOCYTES # (AUTO) 1.9 K/uL (0.8-4.8); LYMPHOCYTES % (AUTO) 15.2 % (20.5-51.5); MEAN CORPUSCULAR HGB CONC 33 g/dL (32.3-35.6); MONOCYTES # (AUTO) 0.5 K/uL (0.1-1.30); MONOCYTES % (AUTO) 3.9 % (0.0-11.0); NEUTROPHILS # (AUTO) 9.8 K/uL (1.8-8.9); NEUTROPHILS % (AUTO) 79.3 % (38.5-71.5); PLATELET COUNT (AUTO) 335 K/uL (179-408); RED BLOOD CELL COUNT(AUTO) 4.59 MIL/uL (3.63-4.92); RED CELL DISTRIBUTION WIDTH 13.7 % (12.3-17.7); WHITE BLOOD COUNT (AUTO) 12.4 K/uL (3.8-11.8)
[2023-07-09 06:55] LABS: DIFFERENTIAL COMMENT 1
[2023-07-09 07:20] LABS: CALCIUM 8.3 mg/dL (8.5-10.1); CARBON DIOXIDE 24 mmol/L (21-32); CHLORIDE 104 mmol/L (98-107); CREATININE 0.7 mg/dL (0.6-1.3); GLUCOSE 102 mg/dL (74-106); MAGNESIUM 1.8 mg/dL (1.8-2.4); PHOSPHOROUS 2.5 mg/dL (2.5-4.9); SODIUM SERUM 141 mmol/L (136-145); UREA NITROGEN, BLOOD 5 mg/dL (7-18)
[2023-07-09] MEDS: PROTEIN SUPPLEMENT (PROSTAT) 30 ML LIQUID PO SCH ×2 (08:00→11:46)
[2023-07-09 08:10] VITALS: BP 140/72; TEMP 98.6; O2SAT 95
[2023-07-09] MEDS: MEMANTINE HCL 10 MG TABLET PO SCH ×3 (09:00→17:39)
[2023-07-09] MEDS: LOSARTAN POTASSIUM 50 MG TABLET PO SCH ×2 (09:00→13:24)
[2023-07-09] MEDS: DONEPEZIL 10 MG TABLET PO SCH ×2 (09:00→13:23)
[2023-07-09] MEDS ORDERED: POTASSIUM CHLORIDE 20 MEQ TAB.PRT.SR PO ONE ×2 (11:00→13:00)
[2023-07-09 11:30] VITALS: BP 129/86; TEMP 98.3; O2SAT 97
[2023-07-09] MEDS ORDERED: POTASSIUM CHLORIDE 20 MEQ POWDER PACKET PO ONE ×2 (15:00→18:00)
[2023-07-09 15:30] VITALS: BP 167/85; TEMP 98.8; O2SAT 93
[2023-07-09 20:45] VITALS: TEMP 98.3; O2SAT 96
[2023-07-09 21:00] VITALS: BP 149/83
[2023-07-09] MEDS: SIMVASTATIN 40 MG TABLET PO SCH (21:03)
[2023-07-10 03:25] LABS: *BILIRUBIN,URIN NEGATIVE (NEGATIVE); *CLARITY,URINE CLEAR (CLEAR); *COLOR,URINE YELLOW (YELLOW); *PROTEIN,URINE NEGATIVE (NEGATIVE); LEUKOCYTE ESTERASE ,URINE NEGATIVE (NEGATIVE); NITRITE, URINE NEGATIVE (NEGATIVE); UGLUCOSE NEGATIVE (NEGATIVE)
[2023-07-10 04:19] LABS: *BLOOD, URINE NEGATIVE (NEGATIVE)
[2023-07-10 04:20] VITALS: BP 137/57; TEMP 98.4; O2SAT 94
[2023-07-10 04:21] LABS: *KETONES,URINE NEGATIVE (NEGATIVE)
[2023-07-10 06:33] LABS: BASOPHILS % (AUTO) 0.3 % (0.0-2.0); EOSINOPHILS # (AUTO) 0.2 K/uL (0.0-0.7); EOSINOPHILS % (AUTO) 1.7 % (0.0-7.0); HEMATOCRIT 38.7 % (31.2-41.9); HEMOGLOBIN 12.7 g/dL (10.9-14.3); LYMPHOCYTES # (AUTO) 1.8 K/uL (0.8-4.8); LYMPHOCYTES % (AUTO) 13.4 % (20.5-51.5); MEAN CORPUSCULAR HEMOGLOBIN 28.1 uug (24.7-32.8); MEAN CORPUSCULAR HGB CONC 33 g/dL (32.3-35.6); MEAN CORPUSCULAR VOLUME 85.6 fL (75.5-95.3); MONOCYTES # (AUTO) 0.7 K/uL (0.1-1.30); MONOCYTES % (AUTO) 4.9 % (0.0-11.0); NEUTROPHILS # (AUTO) 10.9 K/uL (1.8-8.9); NEUTROPHILS % (AUTO) 79.7 % (38.5-71.5); PLATELET COUNT (AUTO) 316 K/uL (179-408); RED BLOOD CELL COUNT(AUTO) 4.52 MIL/uL (3.63-4.92); RED CELL DISTRIBUTION WIDTH 13.6 % (12.3-17.7); WHITE BLOOD COUNT (AUTO) 13.6 K/uL (3.8-11.8)
[2023-07-10] MEDS: PANTOPRAZOLE SODIUM 40 MG TABLET.DR PO SCH (06:34)
[2023-07-10] MEDS: IV NS 1000 ML 1,000 ML IV PRN (06:34)
[2023-07-10 06:40] LABS: DIFFERENTIAL COMMENT 1
[2023-07-10 06:47] LABS: ALANINE AMINOTRANSFERASE 10 U/L (14-59); ALBUMIN 2.7 g/dL (3.4-5.0); ALKALINE PHOSPHATASE 67 U/L (50-136); ASPARTATE AMINOTRANSFERASE 10 U/L (15-37); BILIRUBIN,TOTAL 0.7 mg/dL (0.2-1.0); CALCIUM 8.5 mg/dL (8.5-10.1); CARBON DIOXIDE 26 mmol/L (21-32); CHLORIDE 106 mmol/L (98-107); CREATININE 0.7 mg/dL (0.6-1.3); GLUCOSE 106 mg/dL (74-106); MAGNESIUM 1.7 mg/dL (1.8-2.4); PHOSPHOROUS 2.6 mg/dL (2.5-4.9); POTASSIUM 3.1 mmol/L (3.5-5.1); SODIUM SERUM 142 mmol/L (136-145); TOTAL PROTEIN, SERUM 6.8 g/dL (6.4-8.2); UREA NITROGEN, BLOOD 4 mg/dL (7-18)
[2023-07-10 08:00] VITALS: BP 157/79; TEMP 98.5; O2SAT 96
[2023-07-10] MEDS: PROTEIN SUPPLEMENT (PROSTAT) 30 ML LIQUID PO SCH ×3 (08:00→17:23)
[2023-07-10] MEDS ORDERED: MAGNESIUM SULFATE/D5W 100 ML IV SCH (08:45)
[2023-07-10] MEDS ORDERED: PIPERACILLIN SODIUM/TAZOBACTAM 3.375 G in IV DEXTROSE 5% 50 ML IV ONE (09:00)
[2023-07-10] MEDS ORDERED: POTASSIUM PHOSPHATE MM 7.5 MMOL in IV NORMAL SALINE 97.5 ML IV ONE ×2 (09:30→12:00)
[2023-07-10] MEDS: MEMANTINE HCL 10 MG TABLET PO SCH ×2 (10:28→17:22)
[2023-07-10] MEDS: LOSARTAN POTASSIUM 50 MG TABLET PO SCH (10:28)
[2023-07-10] MEDS: DONEPEZIL 10 MG TABLET PO SCH (10:28)
[2023-07-10 11:33] VITALS: BP 149/79; TEMP 98.4; O2SAT 94
[2023-07-10 15:47] VITALS: BP 164/97; TEMP 98.2; O2SAT 95
[2023-07-10] MEDS: PIPERACILLIN SODIUM/TAZOBACTAM 3.375 G in IV DEXTROSE 5% 100 ML IV SCH (16:22)
[2023-07-10] MEDS ORDERED: hydrALAZINE HCL 25 MG TABLET PO PRN (17:00)
[2023-07-10 20:00] VITALS: BP 148/84; TEMP 98; O2SAT 93
[2023-07-10] MEDS: SIMVASTATIN 40 MG TABLET PO SCH (20:45)
[2023-07-11] MEDS: IV NS 1000 ML 1,000 ML IV PRN (00:48)
[2023-07-11] MEDS: PIPERACILLIN SODIUM/TAZOBACTAM 3.375 G in IV DEXTROSE 5% 100 ML IV SCH ×3 (00:49→17:36)
[2023-07-11 04:00] VITALS: BP 144/75; TEMP 98.2; O2SAT 94
[2023-07-11 06:33] LABS: BASOPHILS # (AUTO) 0.1 K/UL (0.0-0.2); BASOPHILS % (AUTO) 0.7 % (0.0-2.0); EOSINOPHILS # (AUTO) 0.3 K/uL (0.0-0.7); EOSINOPHILS % (AUTO) 2.2 % (0.0-7.0); HEMATOCRIT 38.2 % (31.2-41.9); HEMOGLOBIN 12.1 g/dL (10.9-14.3); LYMPHOCYTES # (AUTO) 0.9 K/uL (0.8-4.8); LYMPHOCYTES % (AUTO) 6.6 % (20.5-51.5); MEAN CORPUSCULAR HEMOGLOBIN 27.3 uug (24.7-32.8); MEAN CORPUSCULAR HGB CONC 32 g/dL (32.3-35.6); MONOCYTES # (AUTO) 0.4 K/uL (0.1-1.30); MONOCYTES % (AUTO) 2.7 % (0.0-11.0); NEUTROPHILS # (AUTO) 12.5 K/uL (1.8-8.9); NEUTROPHILS % (AUTO) 87.8 % (38.5-71.5); PLATELET COUNT (AUTO) 312 K/uL (179-408); RED BLOOD CELL COUNT(AUTO) 4.44 MIL/uL (3.63-4.92); RED CELL DISTRIBUTION WIDTH 13.8 % (12.3-17.7); WHITE BLOOD COUNT (AUTO) 14.2 K/uL (3.8-11.8)
[2023-07-11] MEDS: PANTOPRAZOLE SODIUM 40 MG TABLET.DR PO SCH (06:56)
[2023-07-11 06:57] LABS: DIFFERENTIAL COMMENT 1
[2023-07-11 07:05] LABS: THYROID STIMULATING HORMONE 1.847 mIU/mL (0.358-3.740)
[2023-07-11 07:46] LABS: CALCIUM 8.1 mg/dL (8.5-10.1); CREATININE 0.7 mg/dL (0.6-1.3); MAGNESIUM 1.8 mg/dL (1.8-2.4); PHOSPHOROUS 3.3 mg/dL (2.5-4.9); POTASSIUM 2.9 mmol/L (3.5-5.1)
[2023-07-11] MEDS: PROTEIN SUPPLEMENT (PROSTAT) 30 ML LIQUID PO SCH ×3 (08:48→17:15)
[2023-07-11] MEDS: MEMANTINE HCL 10 MG TABLET PO SCH ×2 (09:15→17:15)
[2023-07-11] MEDS ORDERED: POTASSIUM CHLORIDE 20 MEQ POWDER PACKET PO ONE ×2 (09:45→12:00)
[2023-07-11] MEDS: DONEPEZIL 10 MG TABLET PO SCH (09:47)
[2023-07-11] MEDS: LOSARTAN POTASSIUM 50 MG TABLET PO SCH (09:47)
[2023-07-11 10:57] VITALS: BP 134/65; TEMP 98.4; O2SAT 95
[2023-07-11] MEDS ORDERED: FUROSEMIDE 20 MG/2 ML VIAL IV ONE (12:30)
[2023-07-11] MEDS: ONDANSETRON 4 MG/2 ML VIAL IV PRN (12:40)
[2023-07-11 15:12] VITALS: BP 124/61; TEMP 98.2; O2SAT 96
[2023-07-11] MEDS ORDERED: AMOX-430 PO (18:57)
[2023-07-11] MEDS ORDERED: PANT40TA49 PO (18:57)
== END 2023-07-11 21:20 | disposition home or self-care (01) | DRG 391 ==
LOC: ER 08:38 → MEDSURG3 15:36
PROVIDERS: ADMIT Student in an Organized Health Care Education/Training Program; ATTEND Internal Medicine
PROC: 0DB68ZX Excision of Stomach, Via Natural or Artificial Opening Endoscopic, Diagnostic (ICD-10-PCS; principal; 2023-07-08)
PROC: 05H633Z Insertion of Infusion Device into Left Subclavian Vein, Percutaneous Approach (ICD-10-PCS; 2023-07-11)
PROC: B547ZZA Ultrasonography of Left Subclavian Vein, Guidance (ICD-10-PCS; 2023-07-11)
DX: K22.0 Achalasia of cardia (principal); J69.0 Pneumonitis due to inhalation of food and vomit; E87.1 Hypo-osmolality and hyponatremia; E44.0 Moderate protein-calorie malnutrition; D68.69 Other thrombophilia; I50.32 Chronic diastolic (congestive) heart failure; J90 Pleural effusion, not elsewhere classified; K21.9 Gastro-esophageal reflux disease without esophagitis; E87.6 Hypokalemia; E83.42 Hypomagnesemia; E86.1 Hypovolemia; I11.0 Hypertensive heart disease with heart failure; K29.70 Gastritis, unspecified, without bleeding; Z90.49 Acquired absence of other specified parts of digestive tract; Z91.199 Patient's noncompliance with other medical treatment and regimen due to unspecified reason; I70.0 Atherosclerosis of aorta; E78.5 Hyperlipidemia, unspecified; K83.8 Other specified diseases of biliary tract; E66.9 Obesity, unspecified; Z68.28 Body mass index [BMI] 28.0-28.9, adult; F03.90 Unspecified dementia, unspecified severity, without behavioral disturbance, psychotic disturbance, mood disturbance, and anxiety; K57.30 Diverticulosis of large intestine without perforation or abscess without bleeding; E86.9 Volume depletion, unspecified; Z74.09 Other reduced mobility; K44.9 Diaphragmatic hernia without obstruction or gangrene
CPT/HCPCS: 36415; 71045; 71250; 72170; 74018; 74220; 83550; 83690; 83735; 84100; 84133; 84300; 84443; 84484; 85025; 85730; 88313-TC; 88342; 93005; C9113; G0378; J1200; J1630; J1885; J1940; J2060; J2405; J2543; J2765; J3475; J3480; J3490; J7040; J7042; J8597; Q9963